=== PATIENT | male | born 1965 | race Caucasian/White ===

== ENCOUNTER 2025-05-01 00:11 | Emergency (ER) | payer OTHER, SELFPAY ==
[2025-05-01 00:23] VITALS: BP 175/92
[2025-05-01 00:36] VITALS: BP 136/68
[2025-05-01 00:42] LABS: Hematocrit 42.7 % (39.0-52.0); Hemoglobin 14.3 g/dL (13.0-18.0); Mean Corp Hgb Conc. 33.5 g/dL (33.0-37.0); Mean Corpuscular Volume 92.8 fL (80.0-94.0); Nucleated Red Blood Cells % 0 % (-); Platelet Count 189 10^3/uL (130-400); Red Cell Dist. Width 13.1 % (11.5-14.5)
[2025-05-01 00:48] VITALS: BMI 52.5
--- NOTE | 2025-05-01 00:54 | ED.GENMED ---
History of Present Illness
General
Chief Complaint: Chest Pain
Source: patient
Exam Limitations: none
Time Seen by Provider: 05/01/25 00:48
History of Present Illness
History of Present Illness:
See MDM
Past History
Past History
ED Past Medical History: Arrthythmia and HTN
ED Past Surgical History: Cardiac
Social History
Tobacco: Non-smoker
Alcohol: None
Phy Exam
Physical Exam
Physical Exam:
See MDM
Scores
Heart Score for Chest Pain Patients
STEMI patient?: No
History: Slightly or Non-Suspicious
ECG: Normal
Age: >45 - <65 years
Risk Factors: 1 or 2 Risk Factors
Troponin: </= Normal Limit
Heart Score for Chest Pain Patients: 2
Heart Score Risk: 2.5% MACE over next 6 weeks
Course
Orders/Labs/Results
Orders:
Orders
05/01/25 00:14
EKG [Electrocardiogram (*1)] Urgent
Reason for Study: Chest Pain
Other Reason for Exam: arrhythmia
EKG- Treatment ONCE
05/01/25 00:32
Complete Blood Count/With Diff Urgent
Comprehensive Metabolic Panel Urgent
Troponin I Urgent
Abnormal Lab Results
05/01/25
00:32
RBC 4.60 L 10^6/uL
(4.70-6.10)
MCH 31.1 H pg
(27.0-31.0)
Absolute Monos (auto) 0.7 H 10^3/uL
(0.1-0.6)
Lymphocytes % 17.5 L %
(20.5-51.1)
Glucose 113 H mg/dl
(70-99)
05/01/25 00:32
05/01/25 00:32
Vital Signs
Initial and Last Documented VS:
Initial Vital Signs
Temp Pulse Resp BP Pulse Ox
98.7 F 65 28 175/92 94
05/01/25 00:23 05/01/25 00:23 05/01/25 00:23 05/01/25 00:23 05/01/25 00:23
Last Documented Vital Signs
Temp Pulse Resp BP Pulse Ox
98.7 F 69 15 146/68 96
05/01/25 00:23 05/01/25 01:00 05/01/25 01:00 05/01/25 01:00 05/01/25 01:00
MDM/Problems Addressed
Differential Diagnosis Includes:
HPI and MDM Narrative:
59-year-old male presenting for evaluation of palpitations, chest pressure and shortness of breath. Symptoms were worse about 3 days ago. Since then, symptoms appear to be improving. He does have a history of A-fib and has had 2 ablations in the
past. Patient appears to be in rate controlled A-fib. He was told by his pediatric dental assistant that he is likely developing chronic A-fib. We did discuss that this could be a symptom of his A-fib but given duration of symptoms, will obtain troponin
Physical exam
General: Well appearing and non-toxic
HEENT: protecting airway
Neck: appears supple
CV: No evidence of cyanosis. Regular rate, irregular rhythm
Resp: No accessory muscle use. Lungs clear
Abd: Non-distended
Extremities: No deformities
Neuro: alert
Psych: Normal affect
Skin: Intact
Problems Addressed including Acute and Chronic Conditions affecting care:
1. Rate controlled A-fib
Acuity: acute
Prognosis: stable
Details: Will keep on the monitor and obtain basic blood work
2. Chest pressure and shortness of breath
Acuity: acute
Prognosis: stable
Details: Symptoms have resolved. Given duration of symptoms, will obtain troponin
Updates
Troponin negative. Patient feels comfortable going home. Discussed calling his pediatric dental assistant
Differential Diagnosis (but not limited to): Symptomatic A-fib, ACS
Testing considered: Chest x-ray but shortness of breath and chest pressure have resolved
Drug therapy (if applicable): OTC meds, please see d/c instruction regarding Rx drugs
Amount and/or Complexity of Data Reviewed
Clinical info obtained from: Patient
External data reviewed: N/A
Labs I independently reviewed (but not limited to): White blood cell count normal, troponin negative
Radiology: N/A
Pulse Ox: not hypoxic
EKG independently reviewed: Rate controlled A-fib, normal axis, no STEMI
Bottling Line Operator: A-fib
Critical Care: N/A
Risk of Complication:
Social Determinants of health: Good social support
Discussed with other providers: N/A
Escalation of Care includes Admit/Obs: After being observed in the Emergency Department, pt stable for discharge.
Occasional wrong word or 'sound a like' substitutions may have occurred due to the inherent limitations of voice recognition software. Read the chart carefully and recognize, using context, where substitutions have occurred.
*Pulse Oximetry
SaO2: 97
Oxygen Mode of Delivery: Room air
Patient hypoxic: no
*Critical Care Note
Total Time (30-74mins, 75-104mins- exclusive of procedures): Not Applicable
ED Attending Note
-
Portions of this chart may have been created with voice recognition software.� Occasional wrong word or��sound alike� substitutions may have occurred due to the inherent limitations of voice recognition software.
Discharge Plan
Departure
Patient Disposition: Home (Routine Discharge)
Date of Disposition: 05/01/25
Time of Disposition: 01:24
Patient with high blood pressure during this ER visit?: Yes
Discharge Problem:
Chest pressure, A-fib
Instructions: Atrial fibrillation
Prescriptions:
No Action
Xarelto 20 MG tablet
20 mg PO QPM
Milk Thistle
1 tab PO HS
irbesartan 150 MG tablet
150 mg PO HS
metoprolol succinate 100 MG tablet extended release 24 hr
100 mg PO BID Qty: 60 6RF
cyanocobalamin (vitamin B-12) 1,000 mcg Tablet
1,000 mcg PO DAILY
buspirone 15 mg Capsule
15 mg PO DAILYPRN PRN (Reason: anxiety)
Activity Restrictions/Additional Instructions:
Please return for any worsening symptoms.
You may return at any time if you have further concerns.
Please follow up with your doctor at the first available appointment, preferably this week.
Please follow-up with your pediatric dental assistant at first available appointment.
Thank you for choosing [facility].
Interventions
Interventions:
*Risk Screen - Suicide Last Done: 05/01/25 00:16
*General Assessment Last Done: 05/01/25 00:16
*Neglect/Abuse Screening Last Done: 05/01/25 00:48
*ED- Fall Risk Assessment Last Done: 05/01/25 00:48
*Nursing Disposition Last Done: 05/01/25 01:46
ED- Cardiac Assessment Last Done: 05/01/25 00:50
Discharge Date and Time
Discharge Date/Time: 05/01/25 01:46
Print Language: [place] CITIZ[place]
[2025-05-01 00:59] LABS: ALT (SGPT) 33 U/L (0-50); AST (SGOT) 26 U/L (17-59); Albumin 4.0 g/dl (3.5-5.0); Alkaline Phosphatase 95 U/L (38-126); Blood Urea Nitrogen 10 mg/dl (9-20); Calcium 8.9 mg/dl (8.4-10.2); Carbon Dioxide 29 mmol/L (22-30); Chloride 105 mmol/L (98-107); Estimated Creatinine Clearance > 125 ml/min; Glucose 113 mg/dl (70-99); Potassium 4.3 mmol/L (3.5-5.1); Sodium 136 mmol/L (135-145); Total Protein 6.8 g/dl (6.3-8.2); eGFR > 60.00
[2025-05-01 01:00] VITALS: BP 146/68
[2025-05-01 01:00] LABS: Troponin I < 0.012 ng/ml
== END 2025-05-01 01:46 | disposition home or self-care (01) ==
LOC: EMR 00:11
PROVIDERS: Emergency Medicine; EMERGENCY PHYSICIAN Student in an Organized Health Care Education/Training Program; FAMILY PHYSICIAN Nurse Practitioner Family
DX: I48.91 Unspecified atrial fibrillation (principal); I10 Essential (primary) hypertension
CPT/HCPCS: 99284; 80053; 84484; 85025; 93005

== ENCOUNTER → 2025-06-15 08:14 | Outpatient (REF) | payer OTHER, SELFPAY | LOC: PET 08:14 | PROVIDERS: ATTENDING PHYSICIAN Internal Medicine Cardiovascular Disease | DX: I48.0 Paroxysmal atrial fibrillation (principal) | CPT/HCPCS: 78431; A9555; J2785 ==

== ENCOUNTER → 2025-07-08 08:27 | Outpatient (REF) | payer OTHER, SELFPAY ==
--- NOTE | 2025-07-08 09:20 | CARDSERVDEF ---
Echocardiogram with Definity completed after protocol screening completed. Allergies verified.
Patent IV site: __Right AC___
IV site flushed with 0.9% NaCl pre and post administration.
Diluted bolus method utilized to enhance visualization of ventricular fitch.
Total volume given: __8__ mL
Patient tolerated all procedures well without complications.
== END ==
LOC: RCS 08:27
PROVIDERS: ATTENDING PHYSICIAN Internal Medicine Cardiovascular Disease; FAMILY PHYSICIAN Nurse Practitioner Family
DX: I48.0 Paroxysmal atrial fibrillation (principal); R07.89 Other chest pain
CPT/HCPCS: 93306; Q9957